=== PATIENT | female | born 1985 | race Caucasian/White ===

== ENCOUNTER 2022-07-31 08:29 | Emergency (ER) | payer OTHER ==
--- NOTE | 2022-07-31 08:55 | ED Physician Documentation ---
PD HPI URI - Stated complaint Stated Complaint: BODY ACHES,SORE THRAOT - History obtained from History obtained from: Patient - History of Present Illness Timing - onset: Yesterday Timing details: Abrupt onset, Still present Review of Systems Constitutional: reports: Fever, Chills, Myalgias, Fatigue Nose: denies: Rhinorrhea / runny nose, Congestion Throat: reports: Sore throat Respiratory: reports: Cough GI: reports: Abdominal Pain (intermittent through the night. No pain now.), Nausea, Vomiting. denies: Diarrhea Skin: denies: Rash Musculoskeletal: denies: Neck pain Neurologic: reports: Headache. denies: Confused, Altered mental status PD PAST MEDICAL HISTORY - Past Medical History Cardiovascular: None Respiratory: None Endocrine/Autoimmune: None - Present Medications Home Medications: Ambulatory Orders Medication Instructions Recorded Confirmed HYDROcod/ACETAM 5/325 [[place] 5/325] 1 ea PO Q6H PRN #12 tablet 07/31/22 Lidocaine Viscous 2% [Xylocaine 5 ml PO Q4H PRN #100 ml 07/31/22 Viscous 2%] Ondansetron Odt [Zofran] 4 mg TL Q6H PRN #15 tablet 07/31/22 buPROPion HCL [Bupropion Xl] 150 mg PO DAILY 07/31/22 07/31/22 diphenhydrAMINE ELIXIR [Benadryl 25 mg PO Q6H PRN #240 ml 07/31/22 Elixir] - Allergies Allergies/Adverse Reactions: Allergies Allergy/AdvReac Type Severity Reaction Status Date / Time azithromycin [From Zithromax] Allergy Unknown Verified 04/07/22 20:12 PD ED PE NORMAL - Vitals Vital signs reviewed: Yes - General General: Alert and oriented X 3, No acute distress, Well developed/nourished - HEENT HEENT: No: Moist mucous membranes, Pharynx benign (mild redness without ulcerations nor sores. No purulence nor peritonsillar edema. ) - Neck Neck: Supple, no meningeal sign, No adenopathy - Cardiac Cardiac: RRR, No murmur - Respiratory Respiratory: Clear bilaterally - Abdomen Abdomen: Soft, Non tender - Derm Derm: Normal color, Warm and dry - Neuro Neuro: Alert and oriented X 3, No motor deficit, Normal speech Results - Vitals Vitals: Vital Signs - 24 hr 07/31/22 07/31/22 08:57 11:27 Temperature 36.9 C Heart Rate 85 77 Respiratory 18 18 Rate Blood Pressure 116/90 H 108/69 O2 Saturation 93 100 Oxygen O2 Source Room air - Labs Labs: Laboratory Tests 07/31/22 07/31/22 09:52 09:52 Nasal Adenovirus (PCR) NOT DETECTED Nasal B. parapertussis DNA (PCR) NOT DETECTED Nasal Coronavir 229E PCR NOT DETECTED Nasal Coronavir HKU1 PCR NOT DETECTED Nasal Coronavir NL63 PCR NOT DETECTED Nasal Coronavir OC43 PCR NOT DETECTED Nasal Enterovir/Rhinovir PCR NOT DETECTED Nasal Influenza B PCR NOT DETECTED Nasal Influenza A PCR NOT DETECTED Nasal Parainfluen 1 PCR NOT DETECTED Nasal Parainfluen 2 PCR NOT DETECTED Nasal Parainfluen 3 PCR NOT DETECTED Nasal Parainfluen 4 PCR NOT DETECTED Nasal RSV (PCR) NOT DETECTED Nasal B.pertussis DNA PCR NOT DETECTED Nasal C.pneumoniae (PCR) NOT DETECTED Jorge Human Metapneumo PCR NOT DETECTED Nasal M.pneumoniae (PCR) NOT DETECTED Nasal SARS-CoV-2 (PCR) DETECTED A Group A Strep Rapid Negative PD Medical Decision Making - ED course Complexity details: reviewed results, considered differential (Patient with general viral type symptoms acutely. Does have sore throat in particular so can check for strep as well. Was having nausea with some vomiting last night but is taking orals today. She declined IV fluids.), d/w patient Reviewed Lab Results: Rapid strep test is negative. Respiratory panel is positive for COVID. She was offered and accepted paxlovid. Departure - Departure Disposition: 01 Home, Self Care Clinical Impression: Throat pain in adult, COVID-19, Acute viral syndrome Condition: Stable Record reviewed to determine appropriate education?: Yes Instructions: ED Viral Syndrome Follow-Up: ANGELINA MATA PA-C [Primary Care Provider] - Prescriptions: diphenhydrAMINE ELIXIR [Benadryl Elixir] 25 mg PO Q6H PRN #240 ml PRN Reason: Pain HYDROcod/ACETAM 5/325 [[place] 5/325] 1 ea PO Q6H PRN #12 tablet PRN Reason: Pain Lidocaine Viscous 2% [Xylocaine Viscous 2%] 5 ml PO Q4H PRN #100 ml PRN Reason: Pain Ondansetron Odt [Zofran] 4 mg TL Q6H PRN #15 tablet PRN Reason: Nausea / Vomiting Comments: Your test is positive here for COVID. No other viruses identified. Your strep test is negative. I presume your symptoms relate to the COVID. Stay well-hydrated. Use ondansetron if needed for nausea and vomiting. We can help the sore throat with diphenhydramine/Benadryl liquid in combination with lidocaine orally or just by itself. Tylenol if needed for pains or fevers. You can add ibuprofen or naproxen if needed as well. Add hydrocodone pain medicine if needed for more severe pain. The antiviral combination medicine boxed as pack Slo-Bid may help temper the symptoms a bit. Its taken as directed in the box instructions twice daily for 5 days. I would anticipate illness for about 5 to 7 days. The worst should be there for several days. If you are throat culture were to show any bacterial growth in the next couple of days, we will call you to add antibiotic. At this point it just seems like the viral illness. I sent your prescriptions to [facility] pharmacy. I am prescribing a short course of narcotic pain medication for you. These are potentially dangerous and addictive medications that should be used carefully. These medications may constipate you. Take an [id number] stool softener such as docusate twice daily with plenty of water while taking these medications. If you go 24 hours without a bowel movement, take [id number] MiraLAX, per package instructions. Do not drink or drive while taking these medications. If you received narcotic or sedating medications while in the emergency department do not drive for 24 hours. Store this medication in a safe, secure place and out of reach of children. It is a violation of federal law to give or sell this medication to another person or to use in a manner other than prescribed. The ED will not refill narcotic prescriptions, including prescriptions lost or stolen. You can dispose of unwanted medications at the [facility] office or at several pharmacies such as [facility]. Discharge Date/Time: 07/31/22 11:43
[2022-07-31] MEDS ORDERED: LIDOCAINE VISCOUS 2% 15 ML ORAL SYRINGE MM STA (09:20)
[2022-07-31] MEDS ORDERED: diphenhydrAMINE ELIXIR 25 MG/10 ML UDC PO STA (09:20)
[2022-07-31] MEDS ORDERED: HYDROmorphone 1 MG/ML CARPUJECT IM STA (09:21)
[2022-07-31] MEDS ORDERED: ONDANSETRON ODT 4 MG TABLET TL STA (09:21)
[2022-07-31] MEDS ORDERED: KETOROLAC 30 MG/ML VIAL IM STA (09:21)
[2022-07-31 10:13] LABS: RAPID STREP SCREEN Negative (Negative)
[2022-07-31 10:57] LABS: CORONAVIRUS 229E-RESP PCR NOT DETECTED; CORONAVIRUS HKU1-RESP PCR NOT DETECTED; CORONAVIRUS NL63-RESP PCR NOT DETECTED; CORONAVIRUS OC43-RESP PCR NOT DETECTED; HUMAN METAPNEUMOVIRUS NOT DETECTED; INFLUENZA A- RESP PCR PANEL NOT DETECTED; RHINOVIRUS/ENTEROVIRUS NOT DETECTED; SARS-CoV-2 -RESP PCR PANEL DETECTED
[2022-07-31 10:58] LABS: B. PARAPERTUSSIS- RESP PCR PAN NOT DETECTED; B. PERTUSSIS- RESP PCR PANEL NOT DETECTED; C. PNEUMONIAE- RESP PCR PANEL NOT DETECTED; INFLUENZA B - RESP PCR PANEL NOT DETECTED; M. PNEUMONIAE- RESP PCR PANEL NOT DETECTED; PARAINFLUENZA VIRUS 1 NOT DETECTED; PARAINFLUENZA VIRUS 2 NOT DETECTED; PARAINFLUENZA VIRUS 3 NOT DETECTED; PARAINFLUENZA VIRUS 4 NOT DETECTED; RSV- RESP PCR PANEL NOT DETECTED
[2022-07-31] MEDS ORDERED: NIRMATRELVIR/RITONAVIR PREPACK PO STA (11:09)
[2022-07-31 11:28] VITALS: BP 108/69
== END 2022-07-31 11:43 | disposition home or self-care (01) ==
LOC: ED 08:29
DX: U07.1 COVID-19 (principal); B34.9 Viral infection, unspecified
CPT/HCPCS: 87070; 87430; 87633; 96372; 99283; 99284; A9270; J1170; J3490; Q0162

== ENCOUNTER 2023-02-24 19:37 | Emergency (ER) | payer OTHER ==
[2023-02-24 19:51] VITALS: BP 140/90
[2023-02-24] MEDS ORDERED: predniSONE 20 MG TABLET PO STA (20:41)
--- NOTE | 2023-02-24 20:43 | ED Physician Documentation ---
PD HPI SKIN - Stated complaint Stated Complaint: RASH, LT LEG SWELLING - Chief complaint Chief Complaint: Wound - History obtained from History obtained from: Patient - History of Present Illness Timing - onset: Yesterday Timing - duration: Days (2) Timing - details: Gradual onset Contributing factors: No: Exposed to medication, Exposed to food, Exposed to soap / lotion, Exposed to Poison nancy/oak, Insect bite /sting, Recent illness - Additional information Additional information: Patient is a 37-year-old female who presents to the emergency department with a rash to the top of the bilateral feet that started yesterday, has spread up the legs today and is started on the arms as well. No new soaps, detergents, recent illnesses, no new medications. No travel. She states that she has generalized joint aches as well. She has been taking Benadryl at home. She has had a hysterectomy. No fevers. Review of Systems Constitutional: denies: Fever, Chills GI: denies: Vomiting, Diarrhea : denies: Now [facility] PD PAST MEDICAL HISTORY - Past Medical History Cardiovascular: None Respiratory: None Endocrine/Autoimmune: None - Present Medications Home Medications: Ambulatory Orders Medication Instructions Recorded Confirmed HYDROcod/ACETAM 5/325 [[place] 5/325] 1 ea PO Q6H PRN #12 tablet 07/31/22 Lidocaine Viscous 2% [Xylocaine 5 ml PO Q4H PRN #100 ml 07/31/22 Viscous 2%] Ondansetron Odt [Zofran] 4 mg TL Q6H PRN #15 tablet 07/31/22 buPROPion HCL [Bupropion Xl] 150 mg PO DAILY 07/31/22 07/31/22 diphenhydrAMINE ELIXIR [Benadryl 25 mg PO Q6H PRN #240 ml 07/31/22 Elixir] predniSONE [Deltasone] 10 mg PO [id number] #42 tab 02/24/23 - Allergies Allergies/Adverse Reactions: Allergies Allergy/AdvReac Type Severity Reaction Status Date / Time azithromycin [From Zithromax] Allergy Unknown Verified 04/07/22 20:12 PD ED PE NORMAL - Vitals Vital signs reviewed: Yes - General General: Alert and oriented X 3, No acute distress - HEENT HEENT: Moist mucous membranes - Neck Neck: Supple, no meningeal sign - Cardiac Cardiac: RRR, Strong equal pulses - Respiratory Respiratory: No respiratory distress, Clear bilaterally - Abdomen Abdomen: Soft, Non tender, Non distended - Derm Derm: Warm and dry, Other (Patient with a small scattered papular exanthem mainly on the dorsum of the feet, ankles and bilateral forearms. Also small amounts on the lower abdomen and back. Described as itchy. No vesicles or pust ules.) - Extremities Extremities: No edema, No calf tenderness / cord - Neuro Neuro: Alert and oriented X 3 - Psych Psych: Normal mood, Normal affect Results - Vitals Vitals: Vital Signs - 24 hr 02/24/23 19:41 Temperature 36.5 C Heart Rate 87 Respiratory 16 Rate Blood Pressure 140/90 H O2 Saturation 98 Oxygen O2 Source Room air PD Medical Decision Making - ED course Complexity details: considered differential, d/w patient, d/w family ED course: Patient with rash of unclear etiology, possible viral exanthem? We will treat as a nonspecific dermatitis. She has no skin breakdown in between the toes. No evidence of fungal infection. No tick bites or travel. No recent exposures that she is aware of. We will place on prednisone and have her follow-up with her doctor for further care. Patient counseled regarding signs and symptoms for which I believe and urgent re-evaluation would be necessary. Patient with good understanding of and agreement to plan and is comfortable going home at this time This document was made in part using voice recognition software. While efforts are made to proofread this document, sound alike and grammatical errors may occur. Departure - Departure Disposition: 01 Home, Self Care Clinical Impression: Dermatitis Condition: Good Instructions: ED Dermatitis Non Specific Rash Follow-Up: your,doctor in 1 week [Other] Prescriptions: predniSONE [Deltasone] 10 mg PO [id number] #42 tab Comments: Your prescriptions were sent to [facility] in [place]. Please follow-up with your doctor for further care. Please return if you worsen. Please take all steroids until gone. Forms: PCP List Discharge Date/Time: 02/24/23 20:52
== END 2023-02-24 20:52 | disposition home or self-care (01) ==
LOC: ED 19:37
DX: L30.9 Dermatitis, unspecified (principal)
CPT/HCPCS: 99282; 99283; J7512

== ENCOUNTER 2023-05-24 07:46 | Outpatient (CLI) | payer OTHER ==
[2023-05-24 08:07] LABS: BASOPHILS % (AUTO) 0.3 %; EOSINOPHILS # (AUTO) 0.2 10^3/uL (0.0-0.7); EOSINOPHILS % (AUTO) 2.4 %; HCT - HEMATOCRIT 40.2 % (37.0-47.0); HGB - HEMOGLOBIN 13.5 g/dL (12.0-16.0); LYMPHOCYTES # (AUTO) 2.2 10^3/uL (1.5-3.5); LYMPHOCYTES % (AUTO) 28.6 %; MEAN CORPUSCULAR HEMOGLOBIN 30.7 pg (27.0-31.0); MEAN CORPUSCULAR HGB CONC 33.6 g/dL (32.0-36.0); MEAN CORPUSCULAR VOLUME 91.4 fL (81.0-99.0); MEAN PLATELET VOLUME 10.5 fL (7.9-10.8); MONOCYTES # (AUTO) 0.5 10^3/uL (0.0-1.0); MONOCYTES % (AUTO) 6.5 %; NEUTROPHILS # (AUTO) 4.8 10^3/uL (1.5-6.6); NEUTROPHILS % (AUTO) 61.9 %; PLT - PLATELET COUNT 350 10^3/uL (130-450); RED CELL DISTRIBUTION WIDTH 13.1 % (12.0-15.0); WHITE BLOOD COUNT 7.8 x10^3/uL (4.8-10.8)
[2023-05-24 08:28] LABS: % IRON SATURATION 15 % (20-50); ALBUMIN 4.2 g/dL (3.2-5.5); ALBUMIN/GLOBULIN RATIO 1.4 (1.0-2.2); ALKALINE PHOSPHATASE 51 IU/L (42-121); ALT ALANINE AMINOTRANSFERASE 16 IU/L (10-60); AST ASPARTATE AMINOTRANSFERASE 12 IU/L (10-42); BILIRUBIN,TOTAL 0.4 mg/dL (0.2-1.0); BUN - BLOOD UREA NITROGEN 10 mg/dL (6-20); CALCIUM 9.6 mg/dL (8.5-10.3); CARBON DIOXIDE - CO2 30 mmol/L (21-32); CHLORIDE 103 mmol/L (101-111); CHOL/HDL RATIO 4.6 (<4.4); CHOLESTEROL 251 mg/dL; CREATININE 0.8 mg/dL (0.6-1.3); GFR - MDRD 80 (>89); GLUCOSE 105 mg/dL (74-104); HDL CHOLESTEROL 55 mg/dL; IRON 60 ug/dL (50-212); LDL CHOLESTEROL,CALCULATED 147 mg/dL; LDL/HDL RATIO 2.7 (<4.4); MAGNESIUM 1.7 mg/dL (1.7-2.3); POTASSIUM 4.3 mmol/L (3.5-4.5); SODIUM 139 mmol/L (135-145); TOTAL IRON BINDING CAPACITY 398 ug/dL (250-450); TOTAL PROTEIN 7.2 g/dL (6.4-8.9); TRANSFERRIN 284 mg/dL (203-362); TRIGLYCERIDES 247 mg/dL (48-352); VLDL CHOLESTEROL 49 mg/dL
[2023-05-24 08:40] LABS: THYROID STIMULATING HORMONE 1.81 uIU/mL (0.34-5.60)
[2023-05-24 09:45] LABS: ESTIMATED AVERAGE GLUCOSE 103 mg/dL (70-100); HEMOGLOBIN A1c% 5.2 % (4.27-6.07)
[2023-05-26 22:07] LABS: FOLATE HEMOLYSATE 379.1 ng/mL (Not Estab.); FOLATE RBC 957 ng/mL (>498); HEMATOCRIT 39.6 % (34.0-46.6)
== END 2023-05-24 07:47 | disposition home or self-care (01) ==
LOC: LAB 07:46
PROVIDERS: ATTEND Surgery
DX: E66.01 Morbid (severe) obesity due to excess calories (principal); Z68.41 Body mass index [BMI] 40.0-44.9, adult
CPT/HCPCS: 36415; 80053; 80061; 82306; 82607; 82747; 83036; 83540; 83721; 83735; 84425; 84443; 84466; 85014; 85025

== ENCOUNTER 2023-09-19 09:52 | Outpatient (CLI) | payer OTHER ==
[2023-09-19 10:26] LABS: BASOPHILS % (AUTO) 0.3 %; EOSINOPHILS # (AUTO) 0.2 10^3/uL (0.0-0.7); EOSINOPHILS % (AUTO) 2.5 %; HCT - HEMATOCRIT 40.9 % (37.0-47.0); HGB - HEMOGLOBIN 13.5 g/dL (12.0-16.0); LYMPHOCYTES # (AUTO) 2.2 10^3/uL (1.5-3.5); LYMPHOCYTES % (AUTO) 28.6 %; MEAN CORPUSCULAR HEMOGLOBIN 30.1 pg (27.0-31.0); MEAN CORPUSCULAR VOLUME 91.3 fL (81.0-99.0); MEAN PLATELET VOLUME 10.7 fL (7.9-10.8); MONOCYTES # (AUTO) 0.5 10^3/uL (0.0-1.0); MONOCYTES % (AUTO) 6.1 %; NEUTROPHILS # (AUTO) 4.7 10^3/uL (1.5-6.6); NEUTROPHILS % (AUTO) 62.1 %; PLT - PLATELET COUNT 338 10^3/uL (130-450); RED BLOOD COUNT 4.48 10^6/uL (4.20-5.40); RED CELL DISTRIBUTION WIDTH 13.1 % (12.0-15.0); WHITE BLOOD COUNT 7.6 x10^3/uL (4.8-10.8)
[2023-09-19 10:42] LABS: % IRON SATURATION 18 % (20-50); ALBUMIN/GLOBULIN RATIO 1.4 (1.0-2.2); ALKALINE PHOSPHATASE 67 IU/L (42-121); ALT ALANINE AMINOTRANSFERASE 20 IU/L (10-60); AST ASPARTATE AMINOTRANSFERASE 13 IU/L (10-42); BILIRUBIN,TOTAL 0.3 mg/dL (0.2-1.0); BUN - BLOOD UREA NITROGEN 9 mg/dL (6-20); CALCIUM 9.3 mg/dL (8.5-10.3); CARBON DIOXIDE - CO2 24 mmol/L (21-32); CHLORIDE 106 mmol/L (101-111); CHOL/HDL RATIO 4.1 (<4.4); CHOLESTEROL 197 mg/dL; CREATININE 0.7 mg/dL (0.6-1.3); GFR - MDRD 93 (>89); GLUCOSE 139 mg/dL (74-104); HDL CHOLESTEROL 48 mg/dL; IRON 71 ug/dL (50-212); LDL CHOLESTEROL,CALCULATED 105 mg/dL; LDL/HDL RATIO 2.2 (<4.4); MAGNESIUM 1.8 mg/dL (1.7-2.3); POTASSIUM 4.1 mmol/L (3.5-4.5); SODIUM 135 mmol/L (135-145); TOTAL IRON BINDING CAPACITY 398 ug/dL (250-450); TOTAL PROTEIN 6.8 g/dL (6.4-8.9); TRANSFERRIN 284 mg/dL (203-362); TRIGLYCERIDES 218 mg/dL (48-352); VLDL CHOLESTEROL 44 mg/dL
[2023-09-19 11:45] LABS: ESTIMATED AVERAGE GLUCOSE 108 mg/dL (70-100); HEMOGLOBIN A1c% 5.4 % (4.27-6.07)
[2023-09-21 16:08] LABS: FOLATE HEMOLYSATE 352.8 ng/mL (Not Estab.); FOLATE RBC 854 ng/mL (>498); HEMATOCRIT 41.3 % (34.0-46.6)
== END 2023-09-19 09:53 | disposition home or self-care (01) ==
LOC: LAB 09:52
PROVIDERS: ATTEND Surgery
DX: E66.01 Morbid (severe) obesity due to excess calories (principal); Z68.41 Body mass index [BMI] 40.0-44.9, adult
CPT/HCPCS: 36415; 80053; 80061; 82306; 82607; 82747; 83036; 83540; 83721; 83735; 84425; 84443; 84466; 85014; 85025

== ENCOUNTER 2024-02-05 12:50 | Outpatient (CLI) | payer OTHER ==
--- NOTE | 2024-02-05 21:23 | Ultrasound Report ---
PROCEDURE: Soft Tissue Head or Neck INDICATIONS: MASS TECHNIQUE: Real-time scanning was performed of the with neck soft tissue with image documentation. COMPARISON: NonNoneINDINGS: Ultrasound examination of left neck soft tissue at the left mandibular region shows a simple injury a nechoic structure in soft tissue measures 0.9 x 1.4 x 0.8 cm in size and show no internal vascularity . No communication to the skin surface is noted. IMPRESSION: Small simple cyst in left mandibular subcutaneous soft tissue. No solid mass or abscess c ollection. Reviewed by: Destin Becerra MD on 02/05/2024 9:21 PM PDT Approved by: Destin Becerra MD on 02/05/2024 9:21 PM PDT Station ID: [id number]
== END 2024-02-05 12:51 | disposition home or self-care (01) ==
LOC: DI 12:50
PROVIDERS: ATTEND Internal Medicine
DX: M27.40 Unspecified cyst of jaw (principal)